=== PATIENT | female | born 1975 | race Caucasian/White ===

== ENCOUNTER 2016-09-19 20:13 | Emergency (ER) | payer OTHER ==
[~2016-09-19] VITALS: Ht 177.8 cm; Wt 76.0 kg
[~2016-09-19 20:13] MED LIST: ALBU8I INH; SYNT75TA PO
[2016-09-19 20:26] VITALS: BP 114/75; PULSE 92; RESP 18; TEMP 97.7; O2SAT 97
== END 2016-09-19 21:40 | disposition left against medical advice (07) ==
LOC: PHED 20:13 → PHEFT 21:40
DX: R05 Cough (principal); Z53.21 Procedure and treatment not carried out due to patient leaving prior to being seen by health care provider
CPT/HCPCS: 99281